=== PATIENT | female | born 1990 | race African-American/Black ===

== ENCOUNTER 2017-05-01 21:58 | Emergency (ER) | payer SELFPAY ==
[2017-05-01] MEDS ORDERED: NORMAL SALINE 1000 ML 1,000 ML IV ONE (23:58)
[2017-05-01] MEDS ORDERED: ACETAMINOPHEN 325 MG TABLET PO ONE (23:58)
--- NOTE | 2017-05-01 23:59 | ER Document Report ---
ED Medical Screen (RME) - General Chief Complaint: Headache Stated Complaint: HEADACHE Time Seen by Provider: 05/01/17 23:43 Mode of Arrival: Ambulatory Information source: Patient Notes: Patient presents complaining of headaches for the past several months that became continuous for the past month. Patient states that she had a syncopal episode on April 20 and then had a syncopal episode again today around 5 PM. Patient denies any concerns. Patient denies any nausea or vomiting. Patient denies any improvement of headache symptoms with [id number] medications. Patient does report photophobia. TRAVEL OUTSIDE OF THE [place] IN LAST 30 DAYS: No - Related Data Allergies/Adverse Reactions: No Known Allergies Allergy (Verified 05/01/17 22:01) Past Medical History - Social History Frequency of alcohol use: None Drug Abuse: None Renal/ Medical History: Denies: Hx Peritoneal Dialysis - Immunizations Hx Diphtheria, Pertussis, Tetanus Vaccination: No History of Influenza Vaccine for 03/2017 - 08/2017 Season: No Physical Exam - Vital signs Vitals: Temp Pulse Resp BP Pulse Ox 98.6 F 81 18 119/83 98 05/01/17 22:02 05/01/17 22:02 05/01/17 22:02 05/01/17 22:02 05/01/17 22:02 - Neurological Neuro grossly intact: Yes Cognition: Normal Ashley Coma Scale Eye Opening: Spontaneous Vanderbilt Coma Scale Verbal: Oriented Vanderbilt Coma Scale Motor: Obeys Commands Vanderbilt Coma Scale Total: 15 Course - Vital Signs Vital signs: Temp Pulse Resp BP Pulse Ox 98.6 F 81 18 119/83 98 05/01/17 22:02 05/01/17 22:02 05/01/17 22:02 05/01/17 22:02 05/01/17 22:02
--- NOTE | 2017-05-02 00:35 | ER Document Report ---
ED General - General Chief Complaint: Headache Stated Complaint: HEADACHE Time Seen by Provider: 05/01/17 23:43 Mode of Arrival: Ambulatory Information source: Patient TRAVEL OUTSIDE OF THE [place] IN LAST 30 DAYS: No - Related Data Allergies/Adverse Reactions: No Known Allergies Allergy (Verified 05/01/17 22:01) Past Medical History - General Information source: Patient - Social History Smoking Status: Never Smoker Frequency of alcohol use: None Drug Abuse: None Family History: Reviewed & Not Pertinent Patient has suicidal ideation: No Patient has homicidal ideation: No Renal/ Medical History: Denies: Hx Peritoneal Dialysis - Immunizations Hx Diphtheria, Pertussis, Tetanus Vaccination: No Physical Exam - Vital signs Vitals: Temp Pulse Resp BP Pulse Ox 98.6 F 81 18 119/83 98 05/01/17 22:02 05/01/17 22:02 05/01/17 22:02 05/01/17 22:02 05/01/17 22:02 Course - Vital Signs Vital signs: Temp Pulse Resp BP Pulse Ox 98.3 F 59 L 18 127/74 H 98 05/02/17 02:26 05/02/17 02:26 05/02/17 02:26 05/02/17 02:26 05/02/17 02:26 - Laboratory Result Diagrams: 05/02/17 00:37 05/02/17 00:37 Laboratory results interpreted by me: 05/02/17 05/02/17 00:37 02:19 RBC 3.50 L Hgb 10.9 L Hct 32.9 L Seg Neutrophils % 34.0 L Lymphocytes % 57.7 H Absolute Neutrophils 1.5 L Urine Blood MODERATE H Urine Urobilinogen 2.0 H Ur Leukocyte Esterase TRACE H - EKG Interpretation by Me Rate: Normal - Heart rate 60, normal sinus rhythm, borderline left axis deviation, no clear ischemia. Mild nonspecific ST abnormalities. EKG consistent with 04/20/2017. Discharge - Discharge Clinical Impression: Headache, Syncope Condition: Good Disposition: HOME, SELF-CARE Instructions: Headache ([facility]) Additional Instructions: Return for any problems or concerns. Ensure that you get follow-up with a primary care physician. You might want to consider neurology follow-up as well regarding her recurrent headache. May try the Fioricet if the pain does not seem better with ibuprofen or Tylenol. Syncopal Episode Syncope (fainting or near-fainting) can occur from many different health problems. Or it can be a simple fainting spell requiring no treatment. It is safe for you to go home, but further evaluation will likely be necessary. Your work-up may include tests for internal bleeding, heart disease, medication problems, or near-strokes. Tests are not always required, however, depending on the nature of your problem. The warning signs of an impending faint include: dizziness, lightheadedness , nausea, hot flashes, tingling, and weakness. If this happens, lay down and put your feet up, then wait until all of these symptoms have passed before standing up again. If these episodes become recurrent, or if you develop chest pain, heart palpitations, mental confusion, blurred vision, or headache, then you should call the physician, or go to the emergency room. Prescriptions: Butalb/Acetaminophen/Caffeine [Fioricet (50-325-40 mg) Tablet] 1 tab PO Q4HP PRN #14 tab PRN Reason: Referrals: YESENIA HU MD [[facility]] - Follow up in 1 week
--- NOTE | 2017-05-02 00:51 | ER Document Report ---
ED Headache - General Chief Complaint: Headache Stated Complaint: HEADACHE Time Seen by Provider: 05/01/17 23:43 Mode of Arrival: Ambulatory Information source: Patient TRAVEL OUTSIDE OF THE [place] IN LAST 30 DAYS: No - HPI Patient complains to provider of: Headache Notes: 26-year-old female presents with persisting headache. Though she was seen here 04/20 she is adamant she had a syncopal episode on 04/18 at which time she struck her head and has had a persistent occipital headache ever since. She is unsure if she had any loss of consciousness as this was related to a syncopal episode of which she had to that day. She did have a syncopal episode earlier today but did not have any injury with it. Though at her rapid exam apparently she reported headaches for months she reports this headache has been persistent since the head injury. There was no seizure activity denies any other injury at all. She does have photophobia and a little bit of nausea. She does not have primary care so she has not had any follow-up to this point. Denies any neck pain. No chest pain breathing difficulty. No family history of recurrent syncope or cardiac arrhythmias. She has had no prior structural heart issues. She does not develop presyncopal symptoms as well. Denies palpitations. She does have some mild dizziness. [id number] medications help somewhat for a little bit but then the headache recurs. - Related Data Allergies/Adverse Reactions: No Known Allergies Allergy (Verified 05/01/17 22:01) Past Medical History - General Information source: Patient - Social History Smoking Status: Never Smoker Frequency of alcohol use: None Drug Abuse: None Family History: Reviewed & Not Pertinent Patient has suicidal ideation: No Patient has homicidal ideation: No Renal/ Medical History: Denies: Hx Peritoneal Dialysis - Immunizations Hx Diphtheria, Pertussis, Tetanus Vaccination: No Review of Systems - Review of Systems -: Yes All other systems reviewed and negative Physical Exam - Vital signs Vitals: Temp Pulse Resp BP Pulse Ox 98.6 F 81 18 119/83 98 05/01/17 22:02 05/01/17 22:02 05/01/17 22:02 05/01/17 22:02 05/01/17 22:02 - Notes Notes: GENERAL: VS as per nursing doc. Well-appearing, well-nourished and in no acute distress. HEAD: Atraumatic, normocephalic. No occipital tenderness EYES: Pupils equal round and reactive to light, extraocular movements intact, sclera anicteric, no conjunctival injection or discharge. Patient is photophobic ENT: Nares patent, oropharynx clear without exudates. Moist mucous membranes. NECK: Normal range of motion, supple, no carotid bruits. No neck tenderness LUNGS: Breath sounds clear to auscultation bilaterally and equal. No wheezes rales or rhonchi. HEART: Normal S1S2. Regular rate and rhythm without murmurs. Equal peripheral pulses. ABDOMEN: Soft, non-tender. EXTREMITIES: Normal range of motion. No calf tenderness. Negative Homans. No edema. NEUROLOGICAL: GCS 15, Cranial nerves II-XII intact. Normal visual mcbride. Normal speech without aphasia. No pronator drift. 5/5 RUE strength, 5/5 RLE strength, 5/5 LUE strength, 5/5 LLE strength. No cerebellar abnormalities including normal finger-nose testing. Negative Babinski, 2+= DTR refelexes. PSYCH: Normal mood, normal affect. SKIN: Warm, Dry, no cyanosis, Cap refill < 2 sec. Course - Re-evaluation Re-evalutation: 05/02/17 00:50 Patient appears to have a persisting headache after head trauma though reported to another provider she has had headaches before this. She does not seem overtly concerned about the syncope and more about the headache than anything. I discussed with her repeat CT scan with low likelihood of findings particularly with a normal neurologic exam. She still would like this performed understanding the radiation risk associated. Labs are pending at this point. EKG does not show any clear reason for syncope. 05/02/17 02:53 I reviewed findings with the patient. Voiced understanding of the findings, slight anemia. Reiterated mandatory follow-up as she has yet to get follow-up for her recurrent headaches with her primary care physician of which she does not have currently but understands she will need to establish. Recommended as well consideration for neurology follow-up as well. I do not see clear cause for her syncope but she is at low risk for an underlying significant pathologic cause. Vital signs have remained good here. During her period of observation here she is doing well, using her phone upon entering for reevaluation. She has had no cardiac issues or palpitations here as well. - Vital Signs Vital signs: Temp Pulse Resp BP Pulse Ox 98.3 F 59 L 18 127/74 H 98 05/02/17 02:26 05/02/17 02:26 05/02/17 02:26 05/02/17 02:26 05/02/17 02:26 - Laboratory Result Diagrams: 05/02/17 00:37 05/02/17 00:37 Laboratory results interpreted by me: 05/02/17 00:37 RBC 3.50 L Hgb 10.9 L Hct 32.9 L Seg Neutrophils % 34.0 L Lymphocytes % 57.7 H Absolute Neutrophils 1.5 L - Diagnostic Test Radiology reviewed: Reports reviewed - No acute CT abnormality Discharge - Discharge Clinical Impression: Headache, Syncope Condition: Good Disposition: HOME, SELF-CARE Instructions: Headache ([facility]) Additional Instructions: Return for any problems or concerns. Ensure that you get follow-up with a primary care physician. You might want to consider neurology follow-up as well regarding her recurrent headache. May try the Fioricet if the pain does not seem better with ibuprofen or Tylenol. Syncopal Episode Syncope (fainting or near-fainting) can occur from many different health problems. Or it can be a simple fainting spell requiring no treatment. It is safe for you to go home, but further evaluation will likely be necessary. Your work-up may include tests for internal bleeding, heart disease, medication problems, or near-strokes. Tests are not always required, however, depending on the nature of your problem. The warning signs of an impending faint include: dizziness, lightheadedness , nausea, hot flashes, tingling, and weakness. If this happens, lay down and put your feet up, then wait until all of these symptoms have passed before standing up again. If these episodes become recurrent, or if you develop chest pain, heart palpitations, mental confusion, blurred vision, or headache, then you should call the physician, or go to the emergency room. Prescriptions: Butalb/Acetaminophen/Caffeine [Fioricet (50-325-40 mg) Tablet] 1 tab PO Q4HP PRN #14 tab PRN Reason: Referrals: YESENIA HU MD [[facility]] - Follow up in 1 week
[2017-05-02 00:54] LABS: ABSOLUTE EOSINOPHILS # (AUTO) 0.1 10^3/uL (0.0-0.6); ABSOLUTE LYMPHOCYTES (AUTO) 2.6 10^3/uL (0.5-4.7); ABSOLUTE MONOCYTES (AUTO) 0.3 10^3/uL (0.1-1.4); ABSOLUTE NEUT (AUTO) 1.5 10^3/uL (1.7-8.2); BASOPHILS % (AUTO) 0.7 % (0-2); EOSINOPHILS % (AUTO) 1.4 % (0-6); HEMATOCRIT 32.9 % (36.0-47.0); HEMOGLOBIN 10.9 g/dL (12.0-15.5); HGB HCT DIFFERENCE -0.2; LYMPHOCYTES % (AUTO) 57.7 % (13-45); MEAN CORPUSCULAR HEMOGLOBIN 31.2 pg (27.0-33.4); MEAN CORPUSCULAR HGB CONC 33.2 g/dL (32.0-36.0); MEAN CORPUSCULAR VOLUME 94 fl (80-97); MONOCYTES % (AUTO) 6.2 % (3-13); RED CELL DISTRIBUTION WIDTH 13.4 % (11.5-14.0); WHITE BLOOD COUNT 4.5 10^3/uL (4.0-10.5)
[2017-05-02 01:10] LABS: ALANINE AMINOTRANSFERASE 27 U/L (9-52); ALKALINE PHOSPHATASE 66 U/L (38-126); ANION GAP 12 (5-19); ASPARTATE AMINO TRANSFERASE 16 U/L (14-36); BILIRUBIN,DIRECT 0.2 mg/dL (0.0-0.4); BILIRUBIN,TOTAL 0.6 mg/dL (0.2-1.3); BLOOD UREA NITROGEN 7 mg/dL (7-20); CALCIUM 9.4 mg/dL (8.4-10.2); CARBON DIOXIDE 26 mmol/L (22-30); CHLORIDE 106 mmol/L (98-107); CREATININE RESULT 0.64 mg/dL (0.52-1.25); GLUCOSE 83 mg/dL (75-110); POTASSIUM 3.9 mmol/L (3.6-5.0); SODIUM 144.3 mmol/L (137-145); TOTAL PROTEIN 6.8 g/dL (6.3-8.2)
[2017-05-02 02:33] VITALS: BP 127/74
--- NOTE | 2017-05-02 02:44 | RADIOLOGY REPORT (SQ) ---
EXAM DESCRIPTION: CT HEAD WITHOUT CLINICAL HISTORY: Headache COMPARISON: 04/20/2017 TECHNIQUE: Axial CT of the head obtained from the skull apex to the skull base without contrast. FINDINGS: No acute intracranial hemorrhage identified. No mass, mass effect, shift of the midline, abnormal extra-axial fluid collection or CT evidence of acute ischemic change identified. The ventricular system is unremarkable. No acute abnormalities of the supratentorial white matter, basal ganglia, cerebellum, or brainstem. The visualized paranasal sinuses and the mastoids are clear. No skull fracture identified. Visualized orbits and globes are unremarkable. DLP: 1292 mGy-cm IMPRESSION: 1. No acute intracranial abnormality by CT criteria. This exam was performed according to our departmental dose-optimization program, which includes automated exposure control, adjustment of the mA and/or kV according to patient size and/or use of iterative reconstruction technique.
[2017-05-02 03:00] LABS: APPEARANCE,URINE CLOUDY; BILIRUBIN,URINE NEGATIVE (NEGATIVE); GLUCOSE, URINE NEGATIVE (NEGATIVE); KETONES,URINE NEGATIVE (NEGATIVE); LEUKOCYTE ESTERASE,URINE TRACE (NEGATIVE); NITRITE,URINE NEGATIVE (NEGATIVE); PROTEIN,URINE NEGATIVE (NEGATIVE); URINE SPECIFIC GRAVITY 1.018
[2017-05-02 03:12] LABS: URINE BARBITURATES SCREEN NEGATIVE; URINE METHADONE SCREEN NEGATIVE; URINE OPIATES LOW NEGATIVE; URINE PHENCYCLIDINE SCREEN NEGATIVE
--- NOTE | 2017-05-02 09:15 | EKG REPORT ---
SEVERITY:- OTHERWISE NORMAL ECG - SINUS RHYTHM BORDERLINE LEFT AXIS DEVIATION : Confirmed by: Kari Mujica 02-May-2017 09:15:10
== END 2017-05-02 03:00 | disposition home or self-care (01) ==
LOC: ER 21:58
DX: R51 Headache (principal); R55 Syncope and collapse; H53.149 Visual discomfort, unspecified; R11.0 Nausea; D64.9 Anemia, unspecified; R42 Dizziness and giddiness
CPT/HCPCS: 93005; 99284; 96360; 36415; 84703; 85025; 80053; 81001; 80307; 70450; 93010; J7030

== ENCOUNTER 2017-11-25 18:19 | Emergency (ER) | payer MEDICAID ==
[2017-11-25 20:01] LABS: ABSOLUTE EOSINOPHILS # (AUTO) 0.1 10^3/uL (0.0-0.6); ABSOLUTE LYMPHOCYTES (AUTO) 2.8 10^3/uL (0.5-4.7); ABSOLUTE MONOCYTES (AUTO) 0.5 10^3/uL (0.1-1.4); ABSOLUTE NEUT (AUTO) 4.8 10^3/uL (1.7-8.2); BASOPHILS % (AUTO) 0.4 % (0-2); EOSINOPHILS % (AUTO) 0.6 % (0-6); HEMOGLOBIN 9.3 g/dL (12.0-15.5); LYMPHOCYTES % (AUTO) 34.1 % (13-45); MEAN CORPUSCULAR HEMOGLOBIN 32.1 pg (27.0-33.4); MEAN CORPUSCULAR HGB CONC 34.3 g/dL (32.0-36.0); MEAN CORPUSCULAR VOLUME 94 fl (80-97); MONOCYTES % (AUTO) 6.1 % (3-13); PLATELET COUNT 262 10^3/uL (150-450); RED BLOOD COUNT 2.89 10^6/uL (3.72-5.28); RED CELL DISTRIBUTION WIDTH 13.4 % (11.5-14.0); SEGMENTED NEUTROPHILS % (AUTO) 58.8 % (42-78); TOTAL CELLS COUNTED % (AUTO) 100 %; WHITE BLOOD COUNT 8.2 10^3/uL (4.0-10.5)
--- NOTE | 2017-11-25 20:07 | ER Document Report ---
ED General - General Chief Complaint: Abdominal Pain Stated Complaint: FALL/SYNCOPE Time Seen by Provider: 11/25/17 19:57 Notes: Patient is a 26-year-old female, at 20 weeks gestation, the comes by EMS for chief complaint of passing out, falling on her right side. She states she has passed out several times before in the same way, she was found to have blood sugar of 67 by EMS and was given oral glucose, patient denies any symptoms now except for pain in her abdomen. She denies head pain, neck pain, back pain, dizziness, numbness, incontinence. She denies vaginal bleeding. She is on vitamins, has a history of anemia, denies any other medical history. Family at bedside. TRAVEL OUTSIDE OF THE [place] IN LAST 30 DAYS: No - Related Data Allergies/Adverse Reactions: No Known Allergies Allergy (Verified 05/01/17 22:01) Past Medical History - General Information source: Patient - Social History Smoking Status: Never Smoker Frequency of alcohol use: None Drug Abuse: None Lives with: Family Family History: Reviewed & Not Pertinent Renal/ Medical History: Denies: Hx Peritoneal Dialysis Surgical Hx: Negative - Immunizations Hx Diphtheria, Pertussis, Tetanus Vaccination: Yes Review of Systems - Review of Systems Constitutional: No symptoms reported EENT: No symptoms reported Cardiovascular: No symptoms reported Respiratory: No symptoms reported Gastrointestinal: No symptoms reported Genitourinary: No symptoms reported Female Genitourinary: See HPI Musculoskeletal: No symptoms reported Skin: No symptoms reported Hematologic/Lymphatic: No symptoms reported Neurological/Psychological: No symptoms reported Physical Exam - Vital signs Vitals: Temp Pulse Resp BP Pulse Ox 98.5 F 81 16 112/58 L 100 11/25/17 18:26 11/25/17 18:26 11/25/17 18:26 11/25/17 18:26 11/25/17 18:26 - Notes Notes: GENERAL: Alert, interacts well. No acute distress. Ambulating around the room when I entered. HEAD: Normocephalic, atraumatic. EYES: Pupils equal, round, and reactive to light. Extraocular movements intact. ENT: Oral mucosa moist, tongue midline. [Nares patent, no nasal septal hematoma , TM's intact.] NECK: Full range of motion. Supple. Trachea midline. LUNGS: Clear to auscultation bilaterally, no wheezes, rales, or rhonchi. No respiratory distress. HEART: Regular rate and rhythm. No murmur ABDOMEN: Gravid abdomen. Mild tenderness over the periumbilical and right pelvic area, no guarding, no ecchymosis, good bowel sounds EXTREMITIES: Moves all 4 extremities spontaneously. No edema, normal radial and dorsalis pedis pulses bilaterally. No cyanosis. BACK: no cervical, thoracic, lumbar midline tenderness. No saddle anesthesia, normal distal neurovascular exam. NEUROLOGICAL: Alert and oriented x3. Normal speech. [cranial nerves II through XII grossly intact]. PSYCH: Normal affect, normal mood. SKIN: Warm, dry, normal turgor. No rashes or lesions noted. Course - Re-evaluation Re-evalutation: Laboratory workup had already been initiated before I evaluated the patient including labs and urine. Patient has mild tenderness over the umbilical area and generally over the right side of the abdomen and pelvis, no traumatic abnormalities noted, patient is in no distress, vital signs unremarkable, ambulated around the room during evaluation. CBC shows no anemia, chemistry shows hyperglycemia, patient was fed, this was rechecked and normal. No dizziness when standing, no orthostatic hypotension. Urinalysis contaminated but does show large leukocyte esterase, discussed with patient, she states she has urinary frequency and she wants to be treated. Culture placed, placed on Keflex. Called and spoke with Dr. Mondragon, BOTTOMING MACHINE OPERATOR, discussed whether or not patient should have ultrasound here or should be evaluated upstairs by BOTTOMING MACHINE OPERATOR because of her fall and her symptoms of abdominal/ pelvic pain. He recommends ultrasound be performed and if this is normal patient does not need to be evaluated upstairs by BOTTOMING MACHINE OPERATOR. Ultrasound unremarkable. Discussed syncope, hypoglycemia, recommendations in detail with patient and family. Answered all questions to the best of my ability. Discussed BOTTOMING MACHINE OPERATOR follow-up and return precautions. Patient stable at time of discharge. - Vital Signs Vital signs: Temp Pulse Resp BP Pulse Ox 98.5 F 80 18 110/66 100 11/25/17 18:26 11/25/17 23:00 11/25/17 23:00 11/25/17 23:00 11/25/17 23:00 - Laboratory Result Diagrams: 11/25/17 17:55 11/25/17 17:55 Laboratory results interpreted by me: 11/25/17 11/25/17 11/25/17 17:55 17:55 20:04 RBC 2.89 L Hgb 9.3 L Hct 27.0 L Glucose 70 L Albumin 3.2 L Urine Urobilinogen 4.0 H Ur Leukocyte Esterase LARGE H Discharge - Discharge Clinical Impression: Hypoglycemia Episode of syncope Qualifiers: Syncope type: unspecified Qualified Code(s): R55 - Syncope and collapse Abdominal pain Qualifiers: Abdominal location: lower abdomen, unspecified Qualified Code(s): R10.30 - Lower abdominal pain, unspecified Condition: Stable Disposition: HOME, SELF-CARE Additional Instructions: Your ultrasound does not show any concerning findings from the fall. You have anemia, continue iron, your urine shows possible infection, take Keflex as prescribed to treat this. Your blood sugar was low, this can contribute to passing out, eat proteins to keep your blood sugar up, have something sugary nearby to eat if your blood sugar starts dropping lower. See additional instructions on syncope (passing out) below. I spoke with Dr. Mondragon, BOTTOMING MACHINE OPERATOR [facility]. Follow-up with them in the office. See referral. Return for any concerning symptoms including passing out again, developing or worsening abdominal pain, vaginal bleeding, or any other concerning or worsening symptoms. Syncopal Episode Syncope (fainting or near-fainting) can occur from many different health problems. Or it can be a simple fainting spell requiring no treatment. It is safe for you to go home, but further evaluation will likely be necessary. Your work-up may include tests for internal bleeding, heart disease, medication problems, or near-strokes. Tests are not always required, however, depending on the nature of your problem. The warning signs of an impending faint include: dizziness, lightheadedness , nausea, hot flashes, tingling, and weakness. If this happens, lay down and put your feet up, then wait until all of these symptoms have passed before standing up again. If these episodes become recurrent, or if you develop chest pain, heart palpitations, mental confusion, blurred vision, or headache, then you should call the physician, or go to the emergency room. Prescriptions: Cephalexin Monohydrate [Keflex 500 mg Capsule] 500 mg PO BID #10 capsule Referrals: [facility] [Provider Group] - Follow up as needed
[2017-11-25 20:33] LABS: APPEARANCE,URINE CLOUDY; BILIRUBIN,URINE NEGATIVE (NEGATIVE); COLOR,URINE YELLOW; GLUCOSE, URINE NEGATIVE (NEGATIVE); KETONES,URINE NEGATIVE (NEGATIVE); LEUKOCYTE ESTERASE,URINE LARGE (NEGATIVE); NITRITE,URINE NEGATIVE (NEGATIVE); PROTEIN,URINE NEGATIVE (NEGATIVE); URINE SPECIFIC GRAVITY 1.016
[2017-11-25 20:40] LABS: ALANINE AMINOTRANSFERASE 20 U/L (9-52); ALBUMIN 3.2 g/dL (3.5-5.0); ALKALINE PHOSPHATASE 50 U/L (38-126); ANION GAP 7 (5-19); ASPARTATE AMINO TRANSFERASE 24 U/L (14-36); BILIRUBIN,DIRECT 0.1 mg/dL (0.0-0.4); BILIRUBIN,TOTAL 0.3 mg/dL (0.2-1.3); BLOOD UREA NITROGEN 7 mg/dL (7-20); CALCIUM 9.3 mg/dL (8.4-10.2); CARBON DIOXIDE 23 mmol/L (22-30); CHLORIDE 107 mmol/L (98-107); GLUCOSE 70 mg/dL (75-110); LIPASE 133.5 U/L (23-300); POTASSIUM 4.2 mmol/L (3.6-5.0); SODIUM 137.4 mmol/L (137-145); TOTAL PROTEIN 6.3 g/dL (6.3-8.2)
--- NOTE | 2017-11-25 22:30 | RADIOLOGY REPORT (SQ) ---
EXAM DESCRIPTION: U/S OB LIMITED COMPLETED DATE/TIME: 11/25/2017 9:55 pm REASON FOR STUDY: fall, belly pain COMPARISON: None. TECHNIQUE: Limited transabdominal grayscale ultrasound for evaluation of specific requested obstetri ruth parameters. LIMITATIONS: None. FINDINGS: CERVICAL LENGTH: 4.6 cm Closed. JOHANNY: 10.9 cm. FHR: 158 beats per minute. PRESENTATION: Breech. OTHER: No other significant findings. IMPRESSION: LIMITED OBSTETRICAL ULTRASOUND WITH MEASURED PARAMETERS DELINEATED ABOVE. Trimester of : Second trimester - 13 weeks 1 day to 27 weeks 6 days. TECHNICAL DOCUMENTATION: JOB ID: [id number] [employer]- All Rights Reserved Reading location - IP/workstation name: [email or web address]
[2017-11-25 23:20] VITALS: BP 110/66
== END 2017-11-25 23:20 | disposition home or self-care (01) ==
LOC: ER 18:19
DX: O99.810 Abnormal glucose complicating pregnancy (principal); O26.892 Other specified pregnancy related conditions, second trimester; R55 Syncope and collapse; R10.30 Lower abdominal pain, unspecified; Z3A.20 20 weeks gestation of pregnancy
CPT/HCPCS: 36415; 76815; 80053; 81001; 82962; 83690; 85025; 99284